=== PATIENT | female | born 1965 | race Caucasian/White ===

== ENCOUNTER 2017-03-02 15:04 | Inpatient (IN) | payer MEDICARE, MEDICAID ==
[~2017-03-02] VITALS: Ht 162.6 cm; Wt 64.3 kg
[~2017-03-02 15:04] MED LIST: BENZ2TAB10 PO; CITA40TA14 PO; DOCU50CA5 PO; LOSA100T2 PO; MULT1CAP32 PO; OMEP20 PO; RISP2TAB4 PO; SUCR1TAB PO; TRIL8 PO
[2017-03-02] MEDS ORDERED: OLANZapine 5 MG RAPDIS TABLET PO PRN (17:45)
[2017-03-02] MEDS ORDERED: ZOLPIDEM TARTRATE 10 MG TABLET PO PRN (17:45)
[2017-03-02 17:49] VITALS: BP 143/73
[2017-03-02] MEDS ORDERED: PNEUMOCOCCAL VACCINE POLYVALENT 0.5 ML VIAL [PPSV23] IM ONE (18:00)
[2017-03-02] MEDS: SUCRALFATE 1 GM TABLET PO SCH (20:44)
[2017-03-02] MEDS ORDERED: OLANZapine 5 MG RAPDIS TABLET PO SCH (21:00)
[2017-03-03 08:19] VITALS: BP 123/64
[2017-03-03 08:50] LABS: BASOPHILS % (AUTO) 0.5 % (0.0-2.0); EOSINOPHILS % (AUTO) 2.7 % (1.0-6.0); HEMATOCRIT 36.2 % (36-46); HEMOGLOBIN 12.2 g/dL (12.0-16.0); LYMPHOCYTES # (AUTO) 3.1 K/uL (1.0-4.8); LYMPHOCYTES % (AUTO) 50.3 % (22.0-44.0); MEAN CORPUSCULAR HEMOGLOBIN 31.9 pg (26.0-34.0); MEAN CORPUSCULAR HGB CONC 33.8 G/dL (31.0-37.0); MEAN CORPUSCULAR VOLUME 94 fL (80-100); MONOCYTES # (AUTO) 0.6 K/uL (0.1-1.0); MONOCYTES % (AUTO) 9.2 % (2.0-9.0); NEUTROPHILS # (AUTO) 2.3 K/uL (1.8-7.7); NEUTROPHILS % (AUTO) 37.3 % (40.0-70.0); PLATELET COUNT (AUTO) 236 K/uL (150-450); RED BLOOD CELL COUNT(AUTO) 3.84 MIL/uL (4.00-5.20); RED CELL DISTRIBUTION WIDTH 13.8 % (11.5-14.5); WHITE BLOOD COUNT (AUTO) 6.1 K/uL (4.5-11.0)
[2017-03-03] MEDS ORDERED: MULTIVITAMINS, THERAPEUTIC TABLET PO SCH (09:00)
[2017-03-03] MEDS: DOCUSATE SODIUM 100 MG CAPSULE PO SCH ×2 (09:04→16:48)
[2017-03-03] MEDS: SUCRALFATE 1 GM TABLET PO SCH ×4 (09:05→20:34)
[2017-03-03] MEDS: OMEPRAZOLE 20 MG CAPSULE PO SCH (09:05)
[2017-03-03] MEDS: LOSARTAN POTASSIUM 25 MG TABLET PO SCH (09:05)
[2017-03-03 09:15] LABS: ALANINE AMINOTRANSFERASE 19 U/L (12-78); ALBUMIN 3.2 g/dL (3.4-5.0); ANION GAP 5 mmol/L (8-16); ASPARTATE AMINOTRANSFERASE 13 U/L (15-37); BILIRUBIN,TOTAL 0.3 mg/dL (0.1-1.0); CALCIUM, TOTAL 8.8 mg/dL (8.8-10.5); CARBON DIOXIDE 29 mmol/L (22-29); CHLORIDE 107 mmol/L (98-107); CREATININE 0.79 mg/dL (0.60-1.30); GLOMERULAR FILTR. RATE CALC > 60 mL/min (>60); POTASSIUM 4.4 mmol/L (3.5-5.1); SODIUM SERUM 141 mmol/L (136-145); TOTAL PROTEIN, SERUM 6.5 g/dL (6.4-8.2); UREA NITROGEN, BLOOD 13 mg/dL (7-18)
[2017-03-03] MEDS: LORazepam 2 MG TABLET PO PRN (12:34)
[2017-03-03] MEDS ORDERED: LOPERAMIDE HCL 2 MG CAPSULE PO PRN (14:15)
[2017-03-03] MEDS ORDERED: MAGNESIUM HYDROXIDE SUSPENSION 30 ML UDCUP PO PRN (14:15)
[2017-03-03] MEDS ORDERED: GuaiFENesin/D-METHORPHAN [SUGAR-FREE] 200-20MG/10 ML SYRUP UDCUP PO PRN (14:15)
[2017-03-03] MEDS ORDERED: MAG HYDROX/AL HYDROX/SIMETH ES 30 ML SUSPENSION UDCUP PO PRN (14:15)
[2017-03-03] MEDS ORDERED: PALIPERIDONE 3 MG ER TABLET PO PRN (14:15)
[2017-03-03] MEDS ORDERED: PROMETHAZINE HCL 25 MG TABLET PO PRN ×2 (14:15)
[2017-03-03] MEDS ORDERED: ACETAMINOPHEN 325 MG TABLET PO PRN ×2 (14:15→15:30)
[2017-03-03] MEDS ORDERED: TUBERCULIN, PURIFIED PROTEIN DERIVATIVE 5 TU/0.1 ML SYG ID ONE (14:15)
[2017-03-03] MEDS ORDERED: HydrOXYzine PAMOATE 50 MG CAPSULE PO PRN (14:15)
[2017-03-03] MEDS ORDERED: RISP4TAB34 PO (14:23)
[2017-03-03] MEDS ORDERED: DSS100 PO (14:23)
[2017-03-03] MEDS ORDERED: LOSA25TA21 PO (14:23)
[2017-03-03] MEDS ORDERED: PALIPERIDONE PALMITATE 234 MG/1.5 ML SYRINGE IM ONE (15:30)
[2017-03-03] MEDS ORDERED: IBUPROFEN 400 MG TABLET PO PRN (15:30)
[2017-03-03] MEDS: THIAMINE HCL 100 MG TABLET PO SCH (16:48)
[2017-03-03] MEDS ORDERED: DOCUSATE SODIUM 100 MG CAPSULE PO SCH (17:00)
[2017-03-03] MEDS ORDERED: SUCRALFATE 1 GM TABLET PO SCH (17:00)
[2017-03-03 17:27] VITALS: BP 144/84
[2017-03-03] MEDS: PALIPERIDONE 3 MG ER TABLET PO SCH (20:34)
[2017-03-04 06:59] VITALS: BP 123/74
[2017-03-04 08:13] LABS: HEMOGLOBIN A1C 5.4 % (4.5-6.2)
[2017-03-04] MEDS: DOCUSATE SODIUM 100 MG CAPSULE PO SCH ×2 (08:27→16:45)
[2017-03-04] MEDS: MULTIVITAMINS WITH MINERALS, THERAPEUTIC TABLET PO SCH (08:27)
[2017-03-04] MEDS: FOLIC ACID 1 MG TABLET PO SCH (08:27)
[2017-03-04] MEDS: LOSARTAN POTASSIUM 25 MG TABLET PO SCH (08:27)
[2017-03-04] MEDS: THIAMINE HCL 100 MG TABLET PO SCH ×2 (08:27→16:45)
[2017-03-04] MEDS: OMEPRAZOLE 20 MG CAPSULE PO SCH (08:27)
[2017-03-04] MEDS: SUCRALFATE 1 GM TABLET PO SCH ×4 (08:29→20:22)
[2017-03-04 08:41] LABS: CHOL/HDL RATIO 3.3 (3.9-5.7); THYROID STIMULATING HORMONE 0.33 uIU/mL (0.36-3.74)
[2017-03-04] MEDS ORDERED: OMEPRAZOLE 20 MG CAPSULE PO SCH (09:00)
[2017-03-04] MEDS ORDERED: LOSARTAN POTASSIUM 25 MG TABLET PO SCH (09:00)
[2017-03-04] MEDS: NICOTINE 7 MG/24 HOUR PATCH TD SCH (11:19)
[2017-03-04] MEDS: MUPIROCIN CALCIUM 2% 22 GM OINTMENT NASAL SCH (16:44)
[2017-03-04 17:50] VITALS: BP 118/65
[2017-03-04] MEDS: PALIPERIDONE 3 MG ER TABLET PO SCH (20:22)
[2017-03-05] MEDS: NICOTINE 7 MG/24 HOUR PATCH TD SCH (08:26)
[2017-03-05] MEDS: LOSARTAN POTASSIUM 25 MG TABLET PO SCH (08:26)
[2017-03-05] MEDS: THIAMINE HCL 100 MG TABLET PO SCH ×2 (08:26→17:24)
[2017-03-05] MEDS: SUCRALFATE 1 GM TABLET PO SCH ×4 (08:26→20:34)
[2017-03-05] MEDS: MUPIROCIN CALCIUM 2% 22 GM OINTMENT NASAL SCH (08:26)
[2017-03-05] MEDS: OMEPRAZOLE 20 MG CAPSULE PO SCH (08:26)
[2017-03-05] MEDS: FOLIC ACID 1 MG TABLET PO SCH (08:26)
[2017-03-05] MEDS: DOCUSATE SODIUM 100 MG CAPSULE PO SCH ×2 (08:26→17:24)
[2017-03-05] MEDS: MULTIVITAMINS WITH MINERALS, THERAPEUTIC TABLET PO SCH (08:26)
[2017-03-05 08:29] VITALS: BP 123/73
[2017-03-05 16:06] VITALS: BP 116/71
[2017-03-05] MEDS: PALIPERIDONE 3 MG ER TABLET PO SCH (20:34)
[2017-03-06 06:16] VITALS: BP 125/75
[2017-03-06] MEDS: MULTIVITAMINS WITH MINERALS, THERAPEUTIC TABLET PO SCH (09:10)
[2017-03-06] MEDS: DOCUSATE SODIUM 100 MG CAPSULE PO SCH ×2 (09:10→17:24)
[2017-03-06] MEDS: FOLIC ACID 1 MG TABLET PO SCH (09:10)
[2017-03-06] MEDS: THIAMINE HCL 100 MG TABLET PO SCH ×2 (09:10→17:24)
[2017-03-06] MEDS: LOSARTAN POTASSIUM 25 MG TABLET PO SCH (09:10)
[2017-03-06] MEDS: OMEPRAZOLE 20 MG CAPSULE PO SCH (09:10)
[2017-03-06] MEDS: MUPIROCIN CALCIUM 2% 22 GM OINTMENT NASAL SCH (09:11)
[2017-03-06] MEDS: NICOTINE 7 MG/24 HOUR PATCH TD SCH (09:11)
[2017-03-06] MEDS: SUCRALFATE 1 GM TABLET PO SCH ×4 (09:15→20:55)
[2017-03-06 11:14] VITALS: BP 110/75
[2017-03-06] MEDS ORDERED: PALI234D IM (15:31)
[2017-03-06 16:09] VITALS: BP 133/78
[2017-03-06] MEDS: LORazepam 2 MG TABLET PO PRN (17:24)
[2017-03-07 06:18] VITALS: BP 126/87
[2017-03-07] MEDS ORDERED: MUPI1OIN4 NS (08:04)
[2017-03-07] MEDS ORDERED: PALI234D IM (08:06)
[2017-03-07] MEDS: MUPIROCIN CALCIUM 2% 22 GM OINTMENT NASAL SCH (08:15)
[2017-03-07] MEDS: LOSARTAN POTASSIUM 25 MG TABLET PO SCH (08:15)
[2017-03-07] MEDS: DOCUSATE SODIUM 100 MG CAPSULE PO SCH (08:15)
[2017-03-07] MEDS: MULTIVITAMINS WITH MINERALS, THERAPEUTIC TABLET PO SCH (08:15)
[2017-03-07] MEDS: SUCRALFATE 1 GM TABLET PO SCH (08:15)
[2017-03-07] MEDS: FOLIC ACID 1 MG TABLET PO SCH (08:15)
[2017-03-07] MEDS: OMEPRAZOLE 20 MG CAPSULE PO SCH (08:15)
[2017-03-07] MEDS: THIAMINE HCL 100 MG TABLET PO SCH (08:15)
[2017-03-07] MEDS: NICOTINE 7 MG/24 HOUR PATCH TD SCH (08:16)
[2017-03-07 08:57] VITALS: BP 116/57
[2017-03-07] MEDS ORDERED: PALIPERIDONE PALMITATE 156 MG/ML SYRINGE IM ONE (09:00)
== END 2017-03-07 10:36 | disposition home or self-care (01) | DRG 885 ==
LOC: B2S 17:47 → B3A 18:47
PROVIDERS: ADMIT Psychiatry & Neurology Psychiatry; ATTEND Psychiatry & Neurology Psychiatry
DX: F20.0 Paranoid schizophrenia (principal); Z91.19 Patient's noncompliance with other medical treatment and regimen; F17.200 Nicotine dependence, unspecified, uncomplicated; K59.09 Other constipation; I10 Essential (primary) hypertension; K21.9 Gastro-esophageal reflux disease without esophagitis; F19.10 Other psychoactive substance abuse, uncomplicated; Z28.21 Immunization not carried out because of patient refusal; Z71.51 Drug abuse counseling and surveillance of drug abuser; Z81.8 Family history of other mental and behavioral disorders
CPT/HCPCS: 83036; 84443; 87081; 90471

== ENCOUNTER → 2018-04-09 | Outpatient (CLI) | payer MEDICARE, OTHER ==
[~2018-04-09] MED LIST changes: -BENZ2TAB10 PO; -CITA40TA14 PO; -DOCU50CA5 PO; +DSS100 PO; -LOSA100T2 PO; +LOSA25TA41 PO; -MULT1CAP32 PO; +MUPI1OIN4 NS; +PALI234D IM; -RISP2TAB4 PO; -TRIL8 PO
[2018-04-09 16:26] LABS: HEMOGLOBIN A1C 5.2 % (4.5-6.2)
== END | disposition home or self-care (01) ==
LOC: LABMN 13:00
PROVIDERS: ATTEND Psychiatry & Neurology Psychiatry
DX: F20.0 Paranoid schizophrenia (principal); F17.210 Nicotine dependence, cigarettes, uncomplicated; I10 Essential (primary) hypertension; Z72.89 Other problems related to lifestyle; Z79.899 Other long term (current) drug therapy
CPT/HCPCS: 82947; 83036

== ENCOUNTER 2018-10-31 10:12 | Inpatient (IN) | payer MEDICARE, MEDICAID ==
[~2018-10-31] VITALS: Ht 160 cm; Wt 77.6 kg
[2018-10-31] MEDS ORDERED: IVER3 PO (10:48)
[2018-10-31] MEDS ORDERED: PERM324. TP (10:48)
[2018-10-31] MEDS ORDERED: PALI3 PO (10:49)
[2018-10-31 10:56] VITALS: BP 120/90
[2018-10-31] MEDS ORDERED: LORazepam 2 MG TABLET PO PRN (11:30)
[2018-10-31] MEDS ORDERED: HALOPERIDOL 5 MG TABLET PO PRN (11:30)
[2018-10-31] MEDS ORDERED: PALIPERIDONE 1.5 MG ER TABLET PO PRN (11:30)
[2018-10-31] MEDS ORDERED: ZOLPIDEM TARTRATE 10 MG TABLET PO PRN (11:30)
[2018-10-31] MEDS ORDERED: RISPC50 IM ×2 (11:30→11:32)
[2018-10-31] MEDS ORDERED: LOPERAMIDE HCL 2 MG CAPSULE PO PRN (13:00)
[2018-10-31] MEDS ORDERED: GuaiFENesin/D-METHORPHAN [SUGAR-FREE] 200-20MG/10 ML SYRUP UDCUP PO PRN (13:00)
[2018-10-31] MEDS ORDERED: PERMETHRIN 1% 60 ML LOTION TP ONE (13:00)
[2018-10-31] MEDS ORDERED: MAGNESIUM HYDROXIDE SUSPENSION 30 ML UDCUP PO PRN (13:00)
[2018-10-31] MEDS ORDERED: HydrOXYzine PAMOATE 50 MG CAPSULE PO PRN (13:00)
[2018-10-31] MEDS ORDERED: MAG HYDROX/AL HYDROX/SIMETH ES 30 ML SUSPENSION UDCUP PO PRN (13:00)
[2018-10-31] MEDS ORDERED: PROMETHAZINE HCL 25 MG TABLET PO PRN (13:00)
[2018-10-31] MEDS ORDERED: ACETAMINOPHEN 325 MG TABLET PO PRN (13:00)
[2018-10-31] MEDS: BENZTROPINE MESYLATE 1 MG TABLET PO SCH ×2 (13:06→17:03)
[2018-10-31] MEDS ORDERED: IVERMECTIN 3 MG TABLET PO ONE (16:00)
[2018-10-31] MEDS ORDERED: PALIPERIDONE PALMITATE 234 MG/1.5 ML SYRINGE IM ONE (16:00)
[2018-10-31] MEDS: THIAMINE HCL 100 MG TABLET PO SCH (17:03)
[2018-10-31 17:41] VITALS: BP 123/60
[2018-10-31 19:08] VITALS: BP 123/60
[2018-10-31] MEDS ORDERED: PALIPERIDONE 3 MG ER TABLET PO SCH (21:00)
[2018-11-01] MEDS ORDERED: PNEUMOCOCCAL VACCINE POLYVALENT 0.5 ML VIAL [PPSV23] IM ONE (03:15)
[2018-11-01 06:53] VITALS: BP 118/70
[2018-11-01 08:26] LABS: BASOPHILS % (AUTO) 0.4 % (0.0-2.0); EOSINOPHILS % (AUTO) 5.2 % (1.0-6.0); HEMATOCRIT 39.7 % (36-46); HEMOGLOBIN 13.1 g/dL (12.0-16.0); LYMPHOCYTES % (AUTO) 42.8 % (22.0-44.0); MEAN CORPUSCULAR HEMOGLOBIN 31.4 pg (26.0-34.0); MEAN CORPUSCULAR HGB CONC 33.1 G/dL (31.0-37.0); MEAN CORPUSCULAR VOLUME 95 fL (80-100); MONOCYTES # (AUTO) 0.5 K/uL (0.1-1.0); MONOCYTES % (AUTO) 6.9 % (2.0-9.0); NEUTROPHILS # (AUTO) 3.1 K/uL (1.8-7.7); NEUTROPHILS % (AUTO) 44.7 % (40.0-70.0); PLATELET COUNT (AUTO) 213 K/uL (150-450); RED BLOOD CELL COUNT(AUTO) 4.18 MIL/uL (4.00-5.20); RED CELL DISTRIBUTION WIDTH 13.7 % (11.5-14.5)
[2018-11-01] MEDS: MULTIVITAMINS WITH MINERALS, THERAPEUTIC TABLET PO SCH (08:31)
[2018-11-01] MEDS: THIAMINE HCL 100 MG TABLET PO SCH ×2 (08:31→16:29)
[2018-11-01] MEDS: BENZTROPINE MESYLATE 1 MG TABLET PO SCH ×3 (08:31→16:29)
[2018-11-01] MEDS: FOLIC ACID 1 MG TABLET PO SCH (08:31)
[2018-11-01 08:36] VITALS: BP 109/74
[2018-11-01 08:50] LABS: ALANINE AMINOTRANSFERASE 30 U/L (12-78); ALBUMIN 3.9 g/dL (3.4-5.0); ALKALINE PHOSPHATASE 92 U/L (46-116); ANION GAP 10 mmol/L (8-16); ASPARTATE AMINOTRANSFERASE 29 U/L (15-37); BILIRUBIN,TOTAL 0.4 mg/dL (0.1-1.0); CALCIUM, TOTAL 9.5 mg/dL (8.8-10.5); CARBON DIOXIDE 25 mmol/L (22-29); CHLORIDE 102 mmol/L (98-107); CHOL/HDL RATIO 4.1 (3.9-5.7); CHOLESTEROL 211 mg/dL (131-200); CREATININE 0.92 mg/dL (0.60-1.30); FREE T4 (FREE THYROXINE) 0.78 ng/dL (0.76-1.46); GLOMERULAR FILTR. RATE CALC > 60 mL/min (>60); GLUCOSE,RANDOM 108 mg/dL (70-110); HDL CHOLESTEROL 51 mg/dL (40-60); LDL CHOL (CALC.) 141 mg/dL (0-130); POTASSIUM 4.2 mmol/L (3.5-5.1); SODIUM SERUM 137 mmol/L (136-145); THYROID STIMULATING HORMONE 4.09 uIU/mL (0.36-3.74); TOTAL PROTEIN, SERUM 7.2 g/dL (6.4-8.2); TRIGLYCERIDES 95 mg/dL (15-150); UREA NITROGEN, BLOOD 16 mg/dL (7-18)
[2018-11-01] MEDS: NICOTINE 21 MG/24 HOUR PATCH TD SCH (15:48)
[2018-11-01] MEDS ORDERED: PERMETHRIN 1% 60 ML LOTION TP ONE (16:00)
[2018-11-01 16:06] VITALS: BP 124/78
[2018-11-02 02:43] VITALS: BP 103/68
[2018-11-02] MEDS: MULTIVITAMINS WITH MINERALS, THERAPEUTIC TABLET PO SCH (08:05)
[2018-11-02] MEDS: NICOTINE 21 MG/24 HOUR PATCH TD SCH (08:05)
[2018-11-02] MEDS: FOLIC ACID 1 MG TABLET PO SCH (08:05)
[2018-11-02] MEDS: BENZTROPINE MESYLATE 1 MG TABLET PO SCH ×3 (08:05→16:18)
[2018-11-02] MEDS: THIAMINE HCL 100 MG TABLET PO SCH ×2 (08:05→16:18)
[2018-11-02 08:11] VITALS: BP 120/66
[2018-11-02 16:07] VITALS: BP 122/87
[2018-11-03 06:07] VITALS: BP 110/78
[2018-11-03] MEDS: NICOTINE 21 MG/24 HOUR PATCH TD SCH (08:13)
[2018-11-03] MEDS: BENZTROPINE MESYLATE 1 MG TABLET PO SCH ×3 (08:13→16:29)
[2018-11-03] MEDS: MULTIVITAMINS WITH MINERALS, THERAPEUTIC TABLET PO SCH (08:13)
[2018-11-03] MEDS: FOLIC ACID 1 MG TABLET PO SCH (08:13)
[2018-11-03] MEDS: THIAMINE HCL 100 MG TABLET PO SCH ×2 (08:13→16:29)
[2018-11-03 08:39] VITALS: BP 106/69
[2018-11-03 16:03] VITALS: BP 108/74
[2018-11-04 05:56] VITALS: BP 120/76
[2018-11-04 08:23] VITALS: BP 119/89
[2018-11-04] MEDS: MULTIVITAMINS WITH MINERALS, THERAPEUTIC TABLET PO SCH (08:43)
[2018-11-04] MEDS: NICOTINE 21 MG/24 HOUR PATCH TD SCH (08:43)
[2018-11-04] MEDS: FOLIC ACID 1 MG TABLET PO SCH (08:43)
[2018-11-04] MEDS: BENZTROPINE MESYLATE 1 MG TABLET PO SCH ×3 (08:43→16:35)
[2018-11-04] MEDS: THIAMINE HCL 100 MG TABLET PO SCH ×2 (08:43→16:35)
[2018-11-04] MEDS ORDERED: PALIPERIDONE PALMITATE 156 MG/ML SYRINGE IM ONE (09:00)
[2018-11-04 16:09] VITALS: BP 117/86
[2018-11-05 00:26] VITALS: BP 126/76
[2018-11-05 08:02] VITALS: BP 116/77
[2018-11-05] MEDS: MULTIVITAMINS WITH MINERALS, THERAPEUTIC TABLET PO SCH (08:25)
[2018-11-05] MEDS: NICOTINE 21 MG/24 HOUR PATCH TD SCH (08:25)
[2018-11-05] MEDS: FOLIC ACID 1 MG TABLET PO SCH (08:25)
[2018-11-05] MEDS: THIAMINE HCL 100 MG TABLET PO SCH ×2 (08:25→16:30)
[2018-11-05] MEDS: BENZTROPINE MESYLATE 1 MG TABLET PO SCH ×3 (08:25→16:30)
[2018-11-05 16:20] VITALS: BP 109/63
[2018-11-05] MEDS ORDERED: PALI156D IM (16:34)
[2018-11-05] MEDS ORDERED: BENZ1TAB10 PO (16:34)
[2018-11-05] MEDS ORDERED: NALT50TA PO (16:35)
[2018-11-06 00:53] VITALS: BP 102/77
[2018-11-06] MEDS ORDERED: NALT50TA6 PO (07:57)
[2018-11-06] MEDS ORDERED: BENZ1TAB10 PO (07:57)
[2018-11-06] MEDS ORDERED: PALI156D IM (07:57)
[2018-11-06] MEDS: THIAMINE HCL 100 MG TABLET PO SCH (08:08)
[2018-11-06] MEDS: MULTIVITAMINS WITH MINERALS, THERAPEUTIC TABLET PO SCH (08:08)
[2018-11-06] MEDS: FOLIC ACID 1 MG TABLET PO SCH (08:09)
[2018-11-06] MEDS: NICOTINE 21 MG/24 HOUR PATCH TD SCH (08:09)
[2018-11-06] MEDS: BENZTROPINE MESYLATE 1 MG TABLET PO SCH (08:09)
[2018-11-06 08:16] VITALS: BP 112/65
[2018-11-06] MEDS ORDERED: NALTREXONE HCL 50 MG TABLET PO SCH (09:00)
== END 2018-11-06 09:30 | disposition home or self-care (01) | DRG 885 ==
LOC: B2X 11:23
PROVIDERS: ADMIT Psychiatry & Neurology Psychiatry; ATTEND Psychiatry & Neurology Psychiatry
DX: F25.0 Schizoaffective disorder, bipolar type (principal); K21.9 Gastro-esophageal reflux disease without esophagitis; I10 Essential (primary) hypertension; K59.09 Other constipation; Z91.19 Patient's noncompliance with other medical treatment and regimen
CPT/HCPCS: 83036; 84439; 84443

== ENCOUNTER 2019-07-25 13:00 | Inpatient (IN) | payer MEDICARE, MEDICAID ==
[~2019-07-25] VITALS: Ht 160 cm; Wt 69.9 kg
[~2019-07-25 13:00] MED LIST changes: +BENZ1TAB10 PO; -DSS100 PO; -LOSA25TA41 PO; -MUPI1OIN4 NS; +NALT50TA PO; +NALT50TA6 PO; -OMEP20 PO; +PALI156D IM; -PALI234D IM; -SUCR1TAB PO
[2019-07-25] MEDS ORDERED: LOPERAMIDE HCL 2 MG CAPSULE PO PRN (13:30)
[2019-07-25] MEDS ORDERED: MAG HYDROX/AL HYDROX/SIMETH ES 30 ML SUSPENSION UDCUP PO PRN (13:30)
[2019-07-25] MEDS ORDERED: GuaiFENesin/D-METHORPHAN [SUGAR-FREE] 200-20MG/10 ML SYRUP UDCUP PO PRN (13:30)
[2019-07-25] MEDS ORDERED: ZOLPIDEM TARTRATE 10 MG TABLET PO PRN (13:30)
[2019-07-25] MEDS ORDERED: PROMETHAZINE HCL 25 MG TABLET PO PRN (13:30)
[2019-07-25] MEDS ORDERED: MAGNESIUM HYDROXIDE SUSPENSION 30 ML UDCUP PO PRN (13:30)
[2019-07-25] MEDS ORDERED: LORazepam 2 MG TABLET PO PRN (13:30)
[2019-07-25] MEDS ORDERED: PALIPERIDONE PALMITATE 234 MG/1.5 ML SYRINGE IM ONE (13:30)
[2019-07-25] MEDS ORDERED: PALIPERIDONE 1.5 MG ER TABLET PO PRN (13:30)
[2019-07-25] MEDS ORDERED: ACETAMINOPHEN 325 MG TABLET PO PRN (13:30)
[2019-07-25 13:42] VITALS: BP 131/82
[2019-07-25 14:15] VITALS: BP 104/73
[2019-07-25 15:04] VITALS: BP 131/82
[2019-07-25 16:06] VITALS: BP 119/84
[2019-07-25] MEDS: THIAMINE 100 MG TABLET PO SCH (17:07)
[2019-07-25] MEDS: BENZTROPINE MESYLATE 1 MG TABLET PO SCH (17:07)
[2019-07-25] MEDS ORDERED: PALIPERIDONE 3 MG ER TABLET PO SCH (21:00)
[2019-07-26 08:07] VITALS: BP 135/91
[2019-07-26 08:44] LABS: BASOPHILS % (AUTO) 0.7 % (0.0-2.0); EOSINOPHILS % (AUTO) 3.2 % (1.0-6.0); HEMATOCRIT 37.8 % (36-46); HEMOGLOBIN 12.6 g/dL (12.0-16.0); LYMPHOCYTES % (AUTO) 37.7 % (22.0-44.0); MEAN CORPUSCULAR HEMOGLOBIN 31.1 pg (26.0-34.0); MEAN CORPUSCULAR HGB CONC 33.4 G/dL (31.0-37.0); MEAN CORPUSCULAR VOLUME 93 fL (80-100); MONOCYTES # (AUTO) 0.5 K/uL (0.1-1.0); MONOCYTES % (AUTO) 6.3 % (2.0-9.0); NEUTROPHILS # (AUTO) 4.2 K/uL (1.8-7.7); NEUTROPHILS % (AUTO) 52.1 % (40.0-70.0); PLATELET COUNT (AUTO) 233 K/uL (150-450); RED BLOOD CELL COUNT(AUTO) 4.05 MIL/uL (4.00-5.20); RED CELL DISTRIBUTION WIDTH 13.9 % (11.5-14.5)
[2019-07-26] MEDS: BENZTROPINE MESYLATE 1 MG TABLET PO SCH ×3 (08:59→16:27)
[2019-07-26] MEDS: NALTREXONE HCL 50 MG TABLET PO SCH (08:59)
[2019-07-26] MEDS: FOLIC ACID 1 MG TABLET PO SCH (08:59)
[2019-07-26] MEDS: THIAMINE 100 MG TABLET PO SCH ×2 (08:59→16:27)
[2019-07-26] MEDS: MULTIVITAMINS WITH MINERALS, THERAPEUTIC TABLET PO SCH (08:59)
[2019-07-26 09:06] LABS: ALANINE AMINOTRANSFERASE 16 U/L (12-78); ALBUMIN 3.5 g/dL (3.4-5.0); ALKALINE PHOSPHATASE 94 U/L (46-116); ANION GAP 11 mmol/L (8-16); ASPARTATE AMINOTRANSFERASE 15 U/L (15-37); BILIRUBIN,TOTAL 0.4 mg/dL (0.1-1.0); CALCIUM, TOTAL 8.8 mg/dL (8.8-10.5); CARBON DIOXIDE 23 mmol/L (22-29); CHLORIDE 104 mmol/L (98-107); CHOL/HDL RATIO 4.4 (3.9-5.7); CHOLESTEROL 167 mg/dL (131-200); CREATININE 0.81 mg/dL (0.60-1.30); FREE T4 (FREE THYROXINE) 0.97 ng/dL (0.76-1.46); GLOMERULAR FILTR. RATE CALC > 60 mL/min (>60); GLUCOSE,RANDOM 102 mg/dL (70-110); HDL CHOLESTEROL 38 mg/dL (40-60); LDL CHOL (CALC.) 107 mg/dL (0-130); POTASSIUM 4.2 mmol/L (3.5-5.1); SODIUM SERUM 138 mmol/L (136-145); THYROID STIMULATING HORMONE 1.42 uIU/mL (0.36-3.74); TOTAL PROTEIN, SERUM 6.9 g/dL (6.4-8.2); TRIGLYCERIDES 109 mg/dL (15-150); UREA NITROGEN, BLOOD 12 mg/dL (7-18)
[2019-07-26] MEDS: NICOTINE 21 MG/24 HOUR PATCH TD SCH (11:46)
[2019-07-26 12:29] LABS: HEMOGLOBIN A1C 5.3 % (3.8-5.6)
[2019-07-26 13:40] VITALS: BP 121/80
[2019-07-26 15:02] VITALS: BP 135/91
[2019-07-26 16:07] VITALS: BP 110/65
[2019-07-27] MEDS: NICOTINE 21 MG/24 HOUR PATCH TD SCH (08:05)
[2019-07-27] MEDS: MULTIVITAMINS WITH MINERALS, THERAPEUTIC TABLET PO SCH (08:06)
[2019-07-27] MEDS: FOLIC ACID 1 MG TABLET PO SCH (08:06)
[2019-07-27] MEDS: NALTREXONE HCL 50 MG TABLET PO SCH (08:06)
[2019-07-27] MEDS: BENZTROPINE MESYLATE 1 MG TABLET PO SCH ×3 (08:06→16:33)
[2019-07-27] MEDS: THIAMINE 100 MG TABLET PO SCH ×2 (08:06→16:33)
[2019-07-27 08:29] VITALS: BP 100/72
[2019-07-27 13:32] VITALS: BP 102/72
[2019-07-27 16:04] VITALS: BP 113/61
[2019-07-28 06:30] VITALS: BP 131/88
[2019-07-28 08:14] VITALS: BP 112/74
[2019-07-28] MEDS: NALTREXONE HCL 50 MG TABLET PO SCH (08:18)
[2019-07-28] MEDS: MULTIVITAMINS WITH MINERALS, THERAPEUTIC TABLET PO SCH (08:19)
[2019-07-28] MEDS: FOLIC ACID 1 MG TABLET PO SCH (08:19)
[2019-07-28] MEDS: NICOTINE 21 MG/24 HOUR PATCH TD SCH (08:19)
[2019-07-28] MEDS: THIAMINE 100 MG TABLET PO SCH ×2 (08:19→16:39)
[2019-07-28] MEDS: BENZTROPINE MESYLATE 1 MG TABLET PO SCH ×3 (08:19→16:38)
[2019-07-28 13:32] VITALS: BP 112/87
[2019-07-28 16:15] VITALS: BP 109/78
[2019-07-29 05:09] VITALS: BP 112/74
[2019-07-29 08:13] VITALS: BP 106/61
[2019-07-29] MEDS: MULTIVITAMINS WITH MINERALS, THERAPEUTIC TABLET PO SCH (08:23)
[2019-07-29] MEDS: NALTREXONE HCL 50 MG TABLET PO SCH (08:23)
[2019-07-29] MEDS: FOLIC ACID 1 MG TABLET PO SCH (08:24)
[2019-07-29] MEDS: THIAMINE 100 MG TABLET PO SCH ×2 (08:24→16:21)
[2019-07-29] MEDS: NICOTINE 21 MG/24 HOUR PATCH TD SCH (08:24)
[2019-07-29] MEDS: BENZTROPINE MESYLATE 1 MG TABLET PO SCH ×3 (08:24→16:22)
[2019-07-29] MEDS ORDERED: PALIPERIDONE PALMITATE 156 MG/ML SYRINGE IM ONE (09:00)
[2019-07-29 13:36] VITALS: BP 106/61
[2019-07-29 16:04] VITALS: BP 106/68
[2019-07-30 00:20] VITALS: BP 131/82
[2019-07-30 08:05] VITALS: BP 102/58
[2019-07-30] MEDS: BENZTROPINE MESYLATE 1 MG TABLET PO SCH ×3 (09:20→16:46)
[2019-07-30] MEDS: NICOTINE 21 MG/24 HOUR PATCH TD SCH (09:20)
[2019-07-30] MEDS: NALTREXONE HCL 50 MG TABLET PO SCH (09:21)
[2019-07-30] MEDS: MULTIVITAMINS WITH MINERALS, THERAPEUTIC TABLET PO SCH (09:21)
[2019-07-30] MEDS: THIAMINE 100 MG TABLET PO SCH ×2 (09:21→16:46)
[2019-07-30] MEDS: FOLIC ACID 1 MG TABLET PO SCH (09:22)
[2019-07-30 13:32] VITALS: BP 106/70
[2019-07-30 16:19] VITALS: BP 115/64
[2019-07-31 00:42] VITALS: BP 117/79
[2019-07-31] MEDS: THIAMINE 100 MG TABLET PO SCH ×2 (08:24→16:27)
[2019-07-31] MEDS: MULTIVITAMINS WITH MINERALS, THERAPEUTIC TABLET PO SCH (08:24)
[2019-07-31] MEDS: FOLIC ACID 1 MG TABLET PO SCH (08:24)
[2019-07-31] MEDS: BENZTROPINE MESYLATE 1 MG TABLET PO SCH ×3 (08:24→16:26)
[2019-07-31] MEDS: NICOTINE 21 MG/24 HOUR PATCH TD SCH (08:24)
[2019-07-31] MEDS: NALTREXONE HCL 50 MG TABLET PO SCH (08:24)
[2019-07-31 09:10] VITALS: BP 126/75
[2019-07-31 14:21] VITALS: BP 126/75
[2019-07-31 16:03] VITALS: BP 108/67
[2019-08-01 00:54] VITALS: BP 110/76
[2019-08-01] MEDS: NALTREXONE HCL 50 MG TABLET PO SCH (08:21)
[2019-08-01] MEDS: MULTIVITAMINS WITH MINERALS, THERAPEUTIC TABLET PO SCH (08:21)
[2019-08-01] MEDS: FOLIC ACID 1 MG TABLET PO SCH (08:21)
[2019-08-01] MEDS: NICOTINE 21 MG/24 HOUR PATCH TD SCH (08:21)
[2019-08-01] MEDS: THIAMINE 100 MG TABLET PO SCH ×2 (08:22→16:27)
[2019-08-01] MEDS: BENZTROPINE MESYLATE 1 MG TABLET PO SCH ×3 (08:22→16:27)
[2019-08-01 08:37] VITALS: BP 100/63
[2019-08-01 13:00] VITALS: BP 108/71
[2019-08-01 14:21] VITALS: BP 109/71
[2019-08-01 16:09] VITALS: BP 112/75
[2019-08-02 01:32] VITALS: BP 110/65
[2019-08-02 08:03] VITALS: BP 109/68
[2019-08-02] MEDS ORDERED: BENZ1TAB10 PO (08:44)
[2019-08-02] MEDS ORDERED: NALT50TA PO (08:44)
[2019-08-02] MEDS ORDERED: PALI117D IM (08:44)
[2019-08-02] MEDS: NALTREXONE HCL 50 MG TABLET PO SCH (09:02)
[2019-08-02] MEDS: BENZTROPINE MESYLATE 1 MG TABLET PO SCH ×2 (09:02→12:08)
[2019-08-02] MEDS: NICOTINE 21 MG/24 HOUR PATCH TD SCH (09:02)
[2019-08-02] MEDS: MULTIVITAMINS WITH MINERALS, THERAPEUTIC TABLET PO SCH (09:03)
[2019-08-02] MEDS: THIAMINE 100 MG TABLET PO SCH (09:03)
[2019-08-02] MEDS: FOLIC ACID 1 MG TABLET PO SCH (09:03)
[2019-08-28] MEDS ORDERED: PALIPERIDONE PALMITATE 117 MG/0.75 ML SYRINGE IM SCH (09:00)
== END 2019-08-02 13:10 | disposition home or self-care (01) | DRG 885 ==
LOC: B2X 13:35
PROVIDERS: ADMIT Psychiatry & Neurology Psychiatry; ATTEND Psychiatry & Neurology Psychiatry
DX: F20.0 Paranoid schizophrenia (principal); Z91.19 Patient's noncompliance with other medical treatment and regimen; Z91.14 Patient's other noncompliance with medication regimen; K21.9 Gastro-esophageal reflux disease without esophagitis; B86 Scabies; F17.200 Nicotine dependence, unspecified, uncomplicated
CPT/HCPCS: 83036; 84439; 84443; 86592

== ENCOUNTER 2020-03-31 16:19 | Emergency (ER) | payer MEDICARE, OTHER ==
[~2020-03-31] VITALS: Ht 167.6 cm; Wt 65.9 kg
[~2020-03-31 16:19] MED LIST changes: -NALT50TA6 PO; +PALI117D IM; -PALI156D IM
[2020-03-31 16:27] VITALS: BP 131/87
[2020-03-31] MEDS ORDERED: BISMUTH SUBSALICYLATE 524 MG/30 ML SUSPENSION UDCUP PO ONE (18:15)
== END 2020-03-31 18:44 | disposition home or self-care (01) ==
LOC: EMS 16:19
DX: F20.0 Paranoid schizophrenia (principal); K52.9 Noninfective gastroenteritis and colitis, unspecified; F17.210 Nicotine dependence, cigarettes, uncomplicated

== ENCOUNTER → 2021-04-20 | Outpatient (CLI) | payer MEDICARE, OTHER ==
[2021-04-20 15:33] LABS: CHOL/HDL RATIO 4.2 (3.9-5.7)
[2021-04-20 15:37] LABS: HEMOGLOBIN A1C 5.6 % (3.8-5.6)
== END | disposition home or self-care (01) ==
LOC: LABMN 10:15
PROVIDERS: ATTEND Psychiatry & Neurology Psychiatry
DX: F20.9 Schizophrenia, unspecified (principal); I10 Essential (primary) hypertension; Z79.899 Other long term (current) drug therapy
CPT/HCPCS: 80061; 82947; 83036